=== PATIENT | female | born 1945 | race Asian ===

== ENCOUNTER → 2017-02-03 | Outpatient (CLI) | payer OTHER | LOC: FIMAGING 10:45 | DX: Z12.31 Encounter for screening mammogram for malignant neoplasm of breast (principal) | CPT/HCPCS: G0202 ==

== ENCOUNTER → 2017-12-13 | Outpatient (CLI) | payer OTHER | LOC: FIMAGING 10:34 | PROVIDERS: ATTEND Physician Assistant | DX: M48.061 Spinal stenosis, lumbar region without neurogenic claudication (principal); M46.96 Unspecified inflammatory spondylopathy, lumbar region; M48.07 Spinal stenosis, lumbosacral region; M46.97 Unspecified inflammatory spondylopathy, lumbosacral region ==

== ENCOUNTER 2018-02-20 11:19 | Emergency (ER) | payer OTHER ==
--- NOTE | 2018-02-20 12:18 | EDPHY ---
H & P Stated Complaint: HTN for a couple of weeks - Personal History Current Tetanus/Diphtheria Vaccine: Yes Current Tetanus Diphtheria and Acellular Pertussis (TDAP): Yes Tetanus Vaccine Date: < 10 years - Medical/Surgical History Hx Asthma: No Hx Chronic Respiratory Disease: No Hx Diabetes: No Hx Cardiac Disease: Yes Hx Renal Disease: No Hx Cirrhosis: No Hx Alcoholism: No Hx HIV/AIDS: No Hx Splenectomy or Spleen Trauma: No Other PMH: Cerebral aneurysm, hypertension, hypothyroidism, CVA, ITP, SHANNAN - Social History Smoking Status: Never smoked Time Seen by Provider: 02/20/18 12:05 HPI/ROS: CHIEF COMPLAINT: Redness to right eye, hypertension HISTORY OF PRESENT ILLNESS: 72-year-old female with medical history significant for cardoza aneurysm in 2012 with clipping, history of hypertension. She presents to the ER with her via private vehicle stating that for the past several weeks she has been feeling "off". She has difficulty describing this in detail. She notes that for the past several weeks her blood pressure systolic has been running in the 140s to 150s which was of concern to the patient and her given her medical history of aneurysm and the difficulty in controlling her hypertension for the past several years for which he has been followed by her PCP, Cardiology, Nephrology. No recent change to her medications. 3 days ago the patient had left cataract surgery performed. 2 days later she woke and noticed subconjunctival hemorrhage in the right eye. No ocular pain. No trauma to the right eye. No headache. No gait instability. No slurred speech. REVIEW OF SYSTEMS: A ten point review of systems was performed and is negative with the exception of the items mentioned in the HPI PAST MEDICAL & SURGICAL HISTORY: Aneurysm with clipping and coiling. SOCIAL HISTORY: nonsmoker PHYSICAL EXAM (Prior to examination, patient consented to physical exam, hands were washed and my usual and customary physical exam procedures followed) 1) GENERAL: Well-developed, well-nourished, alert and oriented. Appears to be in no acute distress. 2) HEAD: Normocephalic, atraumatic 3) HEENT: Pupils equal, round, reactive to light bilaterally. Sclera anicteric. Right eye subacute subconjunctival hemorrhage at the 6 o'clock position. No hyphema. No proptosis. No pain with extraocular movements. No photophobia. Nasopharynx, oropharynx, clear, no lesions. Ears bilaterally with normal tympanic membranes. 4) NECK: Full range of motion, no meningeal signs. 5) LUNGS: Clear auscultation bilaterally, no wheezes, no rhonchi, no retractions. 6) HEART: Regular rate and rhythm, no murmur, no heave, no gallop. 7) ABDOMEN: No guarding, no rebound, no focal tenderness, negative McBurney's, negative Regalado's, negative Rovsing's, negative peritoneal sign, 8) MUSCULOSKELETAL: Moving all extremities, no focal areas of tenderness, no obvious trauma. No peripheral edema or discoloration. 9) BACK: No CVA tenderness, no midline vertebral tenderness, no fluctuance, no step-off, no obvious trauma, no visual or palpable abnormality. 10) SKIN: No rash, no petechiae. 11) Psychiatric: Patient is oriented X 3, there is no agitation. 12) NEURO: Awake, alert, and oriented to person, place and time. Answers questions appropriately. There were no obvious focal neurologic abnormalities. No cerebellar dysfunction. Cranial nerves 2 through to 12 intact. Normal steady gait. Upper and lower extremities bilaterally with strength 5 / 5, reflexes 2+. DIFFERENTIAL DIAGNOSIS: In no particular order, including but not limited to subarachnoid hemorrhage, migraine headache, CVA (Donna,Rosamaria Arianne) Constitutional: Initial Vital Signs Temperature (C) 36.7 C 02/20/18 11:25 Heart Rate 86 02/20/18 11:25 Respiratory Rate 18 02/20/18 11:25 Blood Pressure 149/80 H 02/20/18 11:25 O2 Sat (%) 94 02/20/18 11:25 O2 Delivery Mode Room Air Allergies/Adverse Reactions: peanut Allergy (Intermediate, Verified 02/20/18 11:22) Hives Penicillins Allergy (Verified 02/20/18 11:22) Home Medications: Medication Instructions Recorded Avapro 02/20/18 Diltiazem 02/20/18 Fosamax 5mg 02/20/18 HCTZ (*) 02/20/18 Plavix 02/20/18 Pletal (*) 02/20/18 Synthroid 02/20/18 Medical Decision Making - Diagnostics Imaging Results: Images reviewed by myself (Rosamaria Thompson) ED Course/Re-evaluation: 12:25 p.m.: Care of patient under supervision of secondary supervising physician Dr Jameson with whom I discussed case. Old medical records reviewed. This patient has a nonfocal neurologic examination. She is stating that she has been feeling off for the past couple weeks. Given her history of multiple aneurysm, hypertension, will plan on obtaining CT imaging with and without contrast. Doubt CVA. Doubt TIA. Regarding her right eye erythema, this is consistent with a resolving subconjunctival hemorrhage. Doubt acute closed angle glaucoma. Regarding her current blood pressure in the 140s. This will not be emergently decreased.. 3:39 p.m.: Discussed the imaging results with radiologist. A nonspecific punctate enhancement at the lateral wall of the left cavernous carotid artery was noted by the radiologist and we specifically discussed this. It was felt by the radiologist that this does not represent carotid dissection. I re- evaluated the patient most recently at this time. I Discussed the imaging results with the patient. She remains with a nonfocal exam. She is smiling. She has no complaints of headache, chest pain, dizziness, slurred speech. Plan will be discharge with usual customary discharge precautions instructions. Regarding her hypertension I recommended maintaining a blood pressure diary and discussing this with her primary care provider. She and feel comfortable being discharged all questions and concerns addressed by myself. ( Rosamaria Thompson) I did not see this patient while she was in the emergency department. However her care was discussed with the PA while the patient was in the department. I agree with treatment plan and management (Pablo Jameson) - Data Points Laboratory Results: Laboratory Results 02/20/18 12:32 02/20/18 12:32 Departure - Departure Disposition: Home, Routine, Self-Care Clinical Impression: Hypertension Condition: Good Instructions: Hypertension (ED) Additional Instructions: RETURN TO THE ED IMMEDIATELY IF you develop headache IF YOU DEVELOP A FEVER, NECK PAIN OR NECK STIFFNESS, OR IF YOU BECOME CONFUSED OR ABNORMALLY DROWSY. Referrals: Simran Jacob MD [Primary Care Provider] - 1-2 days without fail NIH Stroke Scale Date of Exam: 02/20/18 Time of Exam: 12:20 Level of Consciousness: Alert LOC Questions: Answers Both LOC Commands: Performs Both Correctly Best Gaze: Normal Visual: No Visual Loss Facial Palsy: Normal Motor Arm-Left: No Drift Motor Arm-Right: No Drift Motor Leg-Left: No Drift Motor Leg-Right: No Drift Limb Ataxis: Absent Sensory: Normal Best Language: No Aphasia Dysarthria: Normal Extinction and Inattention (Neglect): No Abnormality NIH Scale Score: 0
[2018-02-20 12:42] LABS: PLATELET COUNT 268 10^3/uL (150-400)
[2018-02-20] MEDS ORDERED: IOPAMIDOL (ISOVUE 370) 100 ML BTL IV ONE (12:54)
[2018-02-20 15:44] VITALS: BP 140/79
== END 2018-02-20 15:45 | disposition home or self-care (01) ==
DX: I10 Essential (primary) hypertension (principal); Z86.73 Personal history of transient ischemic attack (TIA), and cerebral infarction without residual deficits
CPT/HCPCS: 70450; 70496; 99285; Q9967; 82947-QW

== ENCOUNTER → 2018-04-04 | Outpatient (CLI) | payer OTHER | LOC: FIMAGING 12:58 | PROVIDERS: ATTEND Family Medicine | DX: Z12.31 Encounter for screening mammogram for malignant neoplasm of breast (principal) ==

== ENCOUNTER 2018-11-21 07:52 | Inpatient (IN) | payer OTHER ==
--- NOTE | 2018-11-06 15:02 | GHP ---
DATE OF ADMISSION: 11/21/2018 DATE OF SURGERY: She will be an a.m. admission for surgery at [facility] on November 21, 2018. PROBLEM: Left knee arthritis. HISTORY OF PRESENT ILLNESS: The patient is a 73-year-old woman admitted for a left total knee arthro plasty. She has had progressive pain in her left knee for the past couple of years. She has tried G elsyn injections and Supartz injections with minimal long-term benefit. The knee is painful for walk ing. Her activities are very limited. She has failed nonsurgical treatment. She will undergo a lef t total knee arthroplasty. PAST MEDICAL HISTORY: She is treated for hypertension and hypothyroidism. She had a brain aneurysm treated in 2012. She has sleep apnea and uses a CPAP machine. No history of heart disease, stents, DVT, hepatitis, MRSA staph infections, or hereditary bleeding disorders. CURRENT MEDICATIONS: Diltiazem 120 mg extended release in the morning and 240 mg extended release in the p.m. Hydrochlorothiazide 25 mg per day. Avapro 150 mg per day. Alendronate 70 mg per week. L evothyroxine 50 mcg per day. DRUG ALLERGIES: She has a remote poorly defined penicillin allergy as a young child. Metal allergy: None. Latex allergy: None. SOCIAL HISTORY: The patient is . She does not smoke cigarettes or drink alcohol. FAMILY HISTORY: Noncontributory. PHYSICAL EXAMINATION: VITAL SIGNS: Height 5 feet, weight 120 pounds. BMI 23.4. EYES: Bilateral c ataract surgery with lens implants. Bilateral arcus senilis. MOUTH: Good oral hygiene. No loose t eeth. CHEST: Clear. HEART: Regular rhythm. No murmurs. EXTREMITIES: Pertinent findings are limi lyle to her left knee. She has a moderate effusion. She lacks 7 or 8 degrees of full extension and f lexes to 100 degrees. She has pseudolaxity of her medial collateral ligament. She is very tender al robbin the medial joint line. IMAGING: Her films show advanced medial compartment degenerative arthritis. She is bone on bone. V arus alignment. She has mild medial compartment degenerative arthritis in the left knee. IMPRESSION ON ADMISSION: 1. Left knee medial compartment degenerative arthritis. She is prepared for a left total knee arthr oplasty. 2. Treatment for hypertension. 3. Treatment for hypothyroidism. 4. Treatment for sleep apnea. 5. History of brain aneurysm in 2012. PLAN: She will undergo a left total knee arthroplasty. The surgery has been described to her, inclu ding the risks, complications, expectations, and recovery time. I stressed the importance of postope rative physical therapy. I have explained to her that there is a small risk of failure of the total knee replacement. A small percentage of people have persistent pain. All her questions have been an swered, and she consents to surgery. /[id number]/MODL
[~2018-11-21 07:52] MED LIST: POVIDONE-IODINE 20 ML in SODIUM CL IRRIG SOLUTION 500 ML IRR ONE; TRANEXAMIC ACID 3,000 MG/50 ML BAG IRR ONE; VANCOMYCIN 1 GM VIAL ONE; ceFAZolin 1 GM/5 ML SYR ONE
[2018-11-21] MEDS ORDERED: FAMOTIDINE 20 MG TAB PO ONE (08:06)
[2018-11-21] MEDS ORDERED: ceFAZolin 2 GM/DEXTROSE 100 ML IV ONE (08:06)
[2018-11-21] MEDS ORDERED: DEXAMETHASONE 4 MG/ML VIAL IVP ONE (08:06)
[2018-11-21] MEDS ORDERED: GABAPENTIN 300 MG CAP PO ONE (08:06)
[2018-11-21] MEDS ORDERED: ACETAMINOPHEN 325 MG TAB PO ONE (08:06)
[2018-11-21] MEDS ORDERED: ONDANSETRON 4 MG/2 ML VIAL IVP ONE (08:06)
[2018-11-21] MEDS ORDERED: LR 1,000 ML IV ONE (08:10)
[2018-11-21] MEDS ORDERED: TRANEXAMIC ACID 1,000 MG in NS 100 ML IV ONE (09:00)
[2018-11-21] MEDS ORDERED: TRANEXAMIC ACID 3,000 MG in NS (SYRINGE) 50 ML IRR ONE (09:00)
[2018-11-21] MEDS ORDERED: ROPIVACAINE 0.2% 80 MG, EPINEPHrine 0.2 MG, KETOROLAC TROMETHAMINE 30 MG in SYRINGE 0 ML IU ONE (09:00)
--- NOTE | 2018-11-21 09:48 | PDHPUP ---
History & Physical Update H&P update statement: This history and physical update is based on an assessment of the patient which was completed after admission or registration (within 24 hours), but prior to the surgery/procedure. H&P update: H&P reviewed & patient examined
[2018-11-21] MEDS ORDERED: MIDAZOLAM 2 MG/2 ML VIAL ONE (10:26)
[2018-11-21] MEDS ORDERED: MIDAZOLAM 2 MG/2 ML VIAL IVP ONE (10:30)
--- NOTE | 2018-11-21 10:31 | PDANEPAE ---
ANE Past Medical History - Cardiovascular History Hx Hypertension: Yes Hx Arrhythmias: No Hx Chest Pain: No Hx Coronary Artery / Peripheral Vascular Disease: No Hx CHF / Valvular Disease: No Hx Palpitations: No - Pulmonary History Hx COPD: No Hx Asthma/Reactive Airway Disease: No Hx Recent Upper Respiratory Infection: No Hx Oxygen in Use at Home: No Hx Sleep Apnea: Yes Sleep Apnea Screening Result - Last Documented: Negative Pulmonary History Comment: SHANNAN USES C-PAP INSTRUCTED TO BRING DOS - Neurologic History Hx Cerebrovascular Accident: Yes Hx Seizures: No Hx Dementia: No Neurologic History Comment: POST CEREBRAL ANEURSYM CLIP - Endocrine History Hx Diabetes: No Endocrine History Comment: HYPOTHYROID - Renal History Hx Renal Disorders: Yes Renal History Comment: DIFFICULTY EMPTYING BLADDER - Liver History Hx Hepatic Disorders: No - Neurological & Psychiatric Hx Hx Neurological and Psychiatric Disorders: No - Cancer History Hx Cancer: No - Congenital Disorder History Hx Congenital Disorders: No - GI History Hx Gastrointestinal Disorders: No - Other Health History Other Health History: INTERMITTENT NECK PAIN. NUMBNESS RT LEG. MISSING TEETH - Chronic Pain History Chronic Pain: Yes (LT KNEE) - Surgical History Prior Surgeries: FANNY CATARACTS. CRANIOTOMY FOR CEREBRAL ANEURSYM 2013 POST SURG CVA ANE Review of Systems Review of Systems: - Exercise capacity METS (RN): 4 METS ANE Patient History - Allergies Allergies/Adverse Reactions: Penicillins Allergy (Verified 11/08/18 10:57) - Home Medications Home Medications: Alendronate Sodium [Fosamax 70 MG (*)] 70 mg PO STEIN@0700 11/08/18 [Last Taken ] Aspirin [Aspirin 81mg (*)] 81 mg PO DAILY@1200 11/08/18 [Last Taken 1 Week Ago ~ 11/14/18] Cholecalciferol Vit D3 [Vitamin D3 (*)] 1,000 units PO TID 11/08/18 [Last Taken 1 Week Ago ~11/14/18] Diltiazem HCl [Diltiazem 24Hr Cd] 120 mg PO DAILY 11/08/18 [Last Taken 11/21/18 06:30] Diltiazem HCl [Diltiazem 24Hr Cd] 240 mg PO HS 11/08/18 [Last Taken 11/20/18] Fluticasone Nasal [Flonase Nasal [place] (RX)] 2 sprays NASAL DAILY PRN 11/08/18 [ Last Taken 1 Week Ago ~11/14/18] Herbals/Supplements -Info Only 1 ea PO DAILY 11/08/18 [Last Taken 1 Week Ago ~] Hydrochlorothiazide [Hydrochlorothiazide] 25 mg PO DAILY 11/08/18 [Last Taken ] Irbesartan [Avapro 150 mg (*)] 150 mg PO BID 11/08/18 [Last Taken 11/20/18] Levothyroxine [Synthroid 50 mcg (*)] 50 mcg PO SUTUTHSA@06 11/08/18 [Last Taken 11/21/18 06:30] Levothyroxine [Synthroid 50 mcg (*)] 75 mcg PO MWF@0600 11/08/18 [Last Taken ] Multivitamins [Multivitamin (*)] 0.5 each PO BID 11/08/18 [Last Taken 1 Week Ago ~11/14/18] Tears/Dextran 70/Hypromellose [Natural Balance Tears (*)] 1 drop EACHEYE Q2 PRN 11/08/18 [Last Taken 11/21/18 06:30] - NPO status NPO Since - Liquids (Date): 11/21/18 NPO Since - Liquids (Time): 06:30 NPO Since - Solids (Date): 11/21/18 NPO Since - Solids (Time): 00:00 - Smoking Hx Smoking Status: Never smoked ANE Labs/Vital Signs - Vital Signs Blood Pressure: 158/69 Heart Rate: 64 Respiratory Rate: 19 O2 Sat (%): 97 Height: 152.4 cm Weight: 54.431 kg ANE Physical Exam - Airway Neck exam: decreased ROM Mallampati Score: Class 1 Mouth exam: normal dental/mouth exam - Pulmonary Pulmonary: no respiratory distress - Cardiovascular Cardiovascular: regular rate and rhythym - ASA Status ASA Status: II ANE Anesthesia Plan Anesthesia Plan: spinal Regional Anesthesia: adductor canal FNB
[2018-11-21] MEDS ORDERED: BUPIVACAINE/DEXTROSE 7.5MG/ML 2 ML SPINAL AMP SP ONE (10:37)
[2018-11-21] MEDS ORDERED: PROPOFOL/EMULSION 500 MG/50 ML BOTTLE IV ONE (10:52)
[2018-11-21] MEDS ORDERED: LIDOCAINE 2% 5 ML SDV ONE (10:52)
[2018-11-21] MEDS ORDERED: fentaNYL 100 MCG/2 ML INJ IVP PRN (12:32)
[2018-11-21] MEDS ORDERED: LR 500 ML IV PRN (12:32)
[2018-11-21] MEDS ORDERED: ONDANSETRON 4 MG/2 ML VIAL IVP PRN ×2 (12:32→12:39)
[2018-11-21] MEDS ORDERED: NALOXONE HCL 0.4 MG/ML INJ IVP PRN (12:32)
[2018-11-21] MEDS ORDERED: TEARS/DEXTRAN 70/HYPROMELLOSE 15 ML OPHT.BTL EACHEYE PRN (12:38)
[2018-11-21] MEDS ORDERED: FLUTICASONE NASAL 120 SPRAYS/16 GM MDI EACHNARE PRN (12:38)
[2018-11-21] MEDS ORDERED: ONDANSETRON DISINTEGRATING 4 MG TAB PO PRN (12:39)
[2018-11-21] MEDS ORDERED: BISACODYL 10 MG SUPP PR PRN (12:39)
[2018-11-21] MEDS ORDERED: traMADol 50 MG TAB PO PRN (12:39)
[2018-11-21] MEDS ORDERED: LACTULOSE 20 GM/30 ML UDCUP PO PRN (12:39)
[2018-11-21] MEDS ORDERED: TEMAZEPAM 15 MG CAP PO PRN (12:39)
[2018-11-21] MEDS ORDERED: POLYETHYLENE GLYCOL 3350 17 GM PKT PO PRN (12:39)
[2018-11-21] MEDS ORDERED: NS 500 ML IV PRN (12:39)
[2018-11-21] MEDS ORDERED: CYCLOBENZAPRINE 10 MG TAB PO PRN (12:39)
[2018-11-21] MEDS ORDERED: oxyCODONE IR 5 MG TAB PO PRN (12:39)
[2018-11-21] MEDS ORDERED: MAGNESIUM HYDROXIDE 30 ML UDCUP PO PRN (12:39)
[2018-11-21] MEDS ORDERED: PROMETHAZINE HCL 25 MG SUPPR PR PRN (12:39)
[2018-11-21] MEDS ORDERED: PROMETHAZINE HCL 25 MG/ML INJ IVP PRN (12:39)
[2018-11-21] MEDS ORDERED: diphenhydrAMINE 25 MG CAP PO PRN (12:39)
[2018-11-21] MEDS ORDERED: DIPHENOXYLATE/ATROPINE LOMOTIL 1 TAB PO PRN (12:39)
[2018-11-21] MEDS ORDERED: METOCLOPRAMIDE 10 MG/2 ML VIAL IVP PRN (12:39)
[2018-11-21] MEDS ORDERED: LR 1,000 ML IV SCH (13:00)
--- NOTE | 2018-11-21 13:36 | GOP ---
DATE OF OPERATION: 11/21/2018 SURGEON: Kain Palmer MD SENIOR ARCHITECT: KIMMIE Harvey. Justyn Foster CRM TECHNICAL LEAD. ANESTHESIA: Combination of Marcaine, spinal, IV sedation, and adductor canal block. ANESTHESIOLOGIST: Miles Cano MD. PREOPERATIVE DIAGNOSIS: Left knee degenerative arthritis, primarily involving the medial compartment . POSTOPERATIVE DIAGNOSIS: Left knee degenerative arthritis, primarily involving the medial compartmen t. PROCEDURE PERFORMED: A left total knee arthroplasty, cemented, Richmond and Nephew Journey II, posterio r stabilized. FINDINGS: DESCRIPTION OF PROCEDURE: The patient was given 2 g of IV Ancef preoperatively within 60 minutes of surgery. She also received 1000 mg of IV tranexamic acid. She was placed on the operating room tabl e and given spinal anesthesia with Marcaine by Dr. Cano. She was then placed supine and given IV sedation. A Grace catheter was not used. She wore a VERONIKA stocking and SCD on the nonoperative leg. Her left lower extremity was prepped with ChloraPrep from the upper thigh tourniquet to the tips of the toes. It was draped free using sterile sheets, stockinette, and Ioban plastic adhesive drape. T he lower leg was wrapped with compressive Coban. The leg was exsanguinated with elevation and a 6-in ch compressive wrap, and the tourniquet was inflated to 250 mmHg. The World Health Organization time-out was performed to verify the correct patient identity and the c orrect surgical side and site. The [place] time-out was also performed. The Ener-G-Rotorsayo leg holding device was sterilely attached to the operating room table and used throughout the procedure to help position the knee. A straight midline incision was made centered on the patell a. Subcutaneous tissues were sharply divided, and hemostasis was obtained using electrocautery. A m edial subcutaneous flap was developed, and the capsule and synovium were opened in a medial parapatel lar fashion. Extensive degenerative changes were present, particularly in the medial compartment. H er medial capsule and periosteum were elevated off the rim of the medial tibial plateau all the way a round to the posteromedial corner. Her medial collateral ligament was released enough to balance the medial side of the knee. In order to improve exposure, her patella was prepared first. The original thickness of the patella was measured. Peripheral osteophytes were removed. I cut a flat surface on the back of the patella. It was sized for a 35 mm round resurfacing component. I removed enough bone from the patella such that the remaining bone plus the thickness of the patellar component recreated the original thickness of the patella. The composite thickness was 23 mm. The intramedullary alignment guide system was used to set up the distal femoral cut. The distal femu r was cut in 6 degrees of valgus. The sizing jig was used to determine proper femoral sizing. I jin fted the jig anteriorly 1 mm in order to accommodate the size 3 jig without notching the cortex. The 5-in-1 cutting block was applied, and the anterior and posterior condylar cuts and chamfer cuts were made. The final jig was used to remove the central portion of the distal femur to accommodate the p osterior stabilized femoral component. I was careful to determine proper rotation by referencing off Briscoe line and other bony landmarks. Each cut was checked for accuracy. The femur was sized fo r a size 3 posterior stabilized component. Next, the tibia was prepared. The proximal tibial cut was made using the extramedullary alignment gu supriya system. The cut was made in a few degrees of posterior slope. I was careful to achieve proper v arus valgus alignment and proper rotation. The posterior compartment was cleared of meniscal remnant s. Osteophytes were removed from the back of her femoral condyles. I checked the flexion and extens ion gaps. The medial side was still a little bit tight. I did some additional release on the medial collateral ligament. At that point, the flexion and extension gaps were equal and rectangular. The tibia was sized for a size 3 component. With the trial components in place, I selected a 12 mm polye thylene posterior stabilized tibial insert. The knee came to full extension and flexed to 125 degree s. The collateral ligaments were stable and balanced in 90 degrees of flexion and full extension. T he trial patellar button was applied, and tracking was checked. Tracking was excellent without any d igital pressure. 40 cc of the joint anesthetic cocktail was injected into the posterior capsule, the quadriceps muscle and tendon areas, and the subcutaneous tissues along the skin edges. The surfaces were prepared for cementing. They were carefully cleaned with the pulsating lavage irri gation and thoroughly dried. The CarboJet device was used to blow dry the cancellous surfaces. A do uble batch of high viscosity methylmethacrylate cement with 2 g of powdered vancomycin added was mixe d. While it was still in a doughy state, all [address] components were cemented in place. Excess cement was removed before it hardened. The 12 mm trial tibial insert was re-tried and was the proper thickness. The actual component was in serted and locked into place. The knee was thoroughly irrigated 1 final time with a dilute Betadine solution. The tourniquet was deflated. The total tourniquet time was 53 minutes. 50 mL of tranexamic acid tracie ution was irrigated into the wound and left in place for a few minutes. The vastus medialis portion of the extensor mechanism was repaired with several interrupted figure-of -eight #2 FiberWire sutures. The capsule and synovium were closed first with multiple interrupted fi [id number] PDS sutures, followed by a running #2 barbed Ethicon Stratafix PDO suture. Subcutane ous tissues were closed with a running 0 barbed Ethicon Stratafix Monoderm suture. The skin was clos ed with a running 3-0 barbed Ethicon Stratafix Monoderm subcuticular suture. The skin was sealed wit h half-inch Steri-Strips. The wound was covered with a large Mepilex waterproof dressing, and the kn ee was wrapped with a Kerlix and a 6-inch compressive wrap. A long-leg VERONIKA stocking and SCD were su lied, followed by the cooling device. The sacral Mepilex dressing was also applied. I used a size 3 cemented Richmond and Nephew Oxinium posterior stabilized femoral component, a size 3 ce mented tibial base plate, a 12 mm posterior stabilized tibial insert, and a 35 mm cemented round all- polyethylene resurfacing patellar component. The estimated blood loss following deflation of the tourniquet was about 100 cc. The sponge and needle count were correct on 2 occasions. The patient was awakened from anesthesia, transferred to her [facility], and taken to PACU in sa tisfactory condition. There were no recognized intraoperative complications. In the PACU, for addit ional postoperative pain control, Dr. Cano performed an adductor canal block with an indwelling catheter. Nima Meyers and Justyn Foster acted as surgical assistants. Their assistance was a medical necess ity for safe completion of the procedure. Copy requested to: KIMMIE [facility] Justyn Foster CFA [facility] /[id number]/MODL
[2018-11-21] MEDS ORDERED: DEXAMETHASONE 4 MG/ML VIAL ONE (13:39)
[2018-11-21] MEDS: KETOROLAC 15 MG/1 ML SDV IVP SCH (17:35)
[2018-11-21] MEDS: ceFAZolin 2 GM/DEXTROSE 100 ML IV SCH (17:36)
[2018-11-21] MEDS: ACETAMINOPHEN 325 MG TAB PO SCH (17:36)
[2018-11-21] MEDS: FAMOTIDINE 20 MG TAB PO SCH (20:48)
[2018-11-21] MEDS: SENNOSIDES/DOCUSATE SODIUM TAB PO SCH (20:48)
[2018-11-21] MEDS: IRBESARTAN 150 MG TAB PO SCH (20:48)
[2018-11-21] MEDS ORDERED: DILTIAZEM CD 120 MG CAP PO SCH (21:00)
--- NOTE | 2018-11-21 21:41 | PDMN ---
Medical Necessity Medical necessity: Pt meets IP criteria as of 11/21/2018 per MD and MCG S-700 ( TKA); est los > 2 mn s/p TKA; comorbid advanced age, HTN, SHANNAN, hypothyroid and brain aneurysm.
[2018-11-21] MEDS: ASPIRIN 325 MG TAB PO SCH (21:53)
[2018-11-22] MEDS: KETOROLAC 15 MG/1 ML SDV IVP SCH ×3 (00:47→13:04)
[2018-11-22] MEDS: ACETAMINOPHEN 325 MG TAB PO SCH ×3 (00:54→13:03)
[2018-11-22] MEDS: ceFAZolin 2 GM/DEXTROSE 100 ML IV SCH (01:47)
[2018-11-22] MEDS ORDERED: LEVOTHYROXINE 50 MCG TAB PO SCH (06:00)
[2018-11-22] MEDS ORDERED: FERROUS SULFATE 325 MG TAB PO SCH (08:00)
[2018-11-22] MEDS: ASPIRIN 325 MG TAB PO SCH (08:37)
[2018-11-22] MEDS: FAMOTIDINE 20 MG TAB PO SCH (08:37)
[2018-11-22] MEDS: IRBESARTAN 150 MG TAB PO SCH (08:40)
[2018-11-22] MEDS: SENNOSIDES/DOCUSATE SODIUM TAB PO SCH (08:42)
[2018-11-22 08:45] VITALS: BP 155/68
[2018-11-22] MEDS ORDERED: HYDROCHLOROTHIAZIDE 25 MG TAB PO SCH (09:00)
[2018-11-22] MEDS ORDERED: DILTIAZEM CD 120 MG CAP PO SCH (09:00)
[2018-11-22] MEDS ORDERED: ROPIVACAINE HCL 150 MG/30 ML INJ ONE (09:25)
[2018-11-22] MEDS ORDERED: LIPID EMULSION 20% 100 ML IV PRN (09:27)
--- NOTE | 2018-11-22 09:40 | SOAPPROG ---
SOAP Progress Note Assessment/Plan: Assessment: Afebrile. Awake and alert. Mild pain. She had some postural hypotension yesterday afternoon. H&H are good. Postop films look excellent. Plan: Continue physical therapy today for walking and stairs. Discharge later today. 11/22/18 09:40 Objective: Vital Signs Temp Pulse Resp BP Pulse Ox 36.6 C 69 17 155/68 H 98 11/22/18 07:52 11/22/18 08:41 11/22/18 07:52 11/22/18 08:41 11/22/18 07:52 Laboratory Results 11/22/18 04:30 11/21/18 11/22/18 11/23/18 05:59 05:59 05:59 Intake Total 1795 Output Total 1900 800 Balance -105 -800 ICD10 Worksheet Patient Problems: Problems Problem Status Onset Osteoarthritis of left knee Acute Torrez aneurysm Active CAD - Coronary arteriosclerosis Active Orthostatic hypotension Active Syncope Active
--- NOTE | 2018-11-22 11:12 | PDPAINCON ---
Pain Management Consultation Patient referred by : Estela - Subjective Pain at rest (/10): 2 Pain with activity (/10): 4 Pain is: low, well controlled Activity: able to ambulate, out of bed with assistance - Objective Technique: continuous peripheral nerve block Site: femoral Continuous infusion: ropivicaine Catheter site: clean, dry, intact, no erythema/edema/exudate Sensory and motor exam: consistent with block Vital signs: stable - Assessment/Plan Assessment/Plan: pain well-controlled, continue current mgmt (Pt doing well. Minimal pain s/p L TKA. AC catheter bolused with 30 ml 0.5% Ropivacaine and removed.)
--- NOTE | 2018-11-22 11:16 | GDS ---
ADMISSION DIAGNOSIS: Left knee severe degenerative arthritis. DISCHARGE DIAGNOSIS: Left knee severe degenerative arthritis. OPERATION PERFORMED: November 21, 2018, a left total knee arthroplasty. POSTOPERATIVE COMPLICATIONS: None. CONDITION ON DISCHARGE: Improved. DESCRIPTION OF HOSPITAL COURSE: The patient was admitted to the hospital on the morning of surgery. Her admission CBC was normal. Sodium 135, potassium 3.6, BUN and creatinine 15 and 0.7. The same d ay, under a combination of Marcaine spinal, IV sedation, and adductor canal block, she underwent a le ft total knee arthroplasty. Postoperatively, she was treated with multimodal DVT prophylaxis, includ ing aspirin. She was seen by Physical Therapy and made excellent progress with ambulation and stairs . By the time of discharge, she was afebrile and was independent walking with a walker. DISPOSITION: The patient is discharged to her home. She will go to outpatient physical therapy next week. She may progress to full weightbearing on the left as tolerated. Use VERONIKA stockings for 1 wee k. Continue aspirin 325 mg p.o. daily for 21 days. She has prescriptions for Celebrex, tramadol, an d oxycodone for pain control. I will see her back in the office on December 07, 2018. If there are a ny problems, she is to call me at the office. /[id number]/MODL
--- NOTE | 2018-11-22 12:23 | ASMTCMCOM ---
CM Note CM Note Notes: Pt had planned OA of knee, PT and MD rec outpatient PT. No CM d/c needs identified. Date Signed: 11/22/2018 12:22 PM Electronically Signed By:WILLIAN Whyte
[2018-11-23] MEDS ORDERED: LEVOTHYROXINE 50 MCG TAB PO SCH (06:00)
--- NOTE | 2018-11-23 17:13 | SOAPPROG ---
SOAP Progress Note Assessment/Plan: Assessment: Afebrile. Awake and alert. Mild pain. She had some postural hypotension yesterday afternoon. H&H are good. Postop films look excellent. Plan: Continue physical therapy today for walking and stairs. Discharge later today. 11/22/18 09:40 11/23/18 17:11 Pt did better than expected and was able to be discharged after one night stay in the hospital Objective: Vital Signs Temp Pulse Resp BP Pulse Ox 36.6 C 75 14 155/68 H 97 11/22/18 07:52 11/22/18 10:42 11/22/18 10:42 11/22/18 08:41 11/22/18 10:42 Laboratory Results 11/22/18 04:30 11/22/18 11/23/18 11/24/18 05:59 05:59 05:59 Intake Total 1795 Output Total 1900 800 Balance -105 -800 ICD10 Worksheet Patient Problems: Problems Problem Status Onset Torrez aneurysm Active CAD - Coronary arteriosclerosis Active Orthostatic hypotension Active Syncope Active Osteoarthritis of left knee Acute
--- NOTE | 2018-11-27 14:47 | GPROG ---
The patient's cardiovascular status is normal, stable. The patient's respiratory status is normal, stable. The patient's pain control is adequate with p.r.n. frequent ordered. Nausea/vomiting control are adequate with p.r.n. treatment ordered. Mental status is mildly sleepy, easily arousable. Complications related to anesthesia are none at this time. /[id number]/MODL
== END 2018-11-22 14:00 | disposition home or self-care (01) | DRG 470 ==
LOC: F3N 07:52
PROVIDERS: ADMIT Orthopaedic Surgery; ATTEND Orthopaedic Surgery
PROC: 0SRD0J9 Replacement of Left Knee Joint with Synthetic Substitute, Cemented, Open Approach (ICD-10-PCS; principal; 2018-11-21 09:00)
DX: M17.12 Unilateral primary osteoarthritis, left knee (principal); I10 Essential (primary) hypertension; E03.9 Hypothyroidism, unspecified; G47.33 Obstructive sleep apnea (adult) (pediatric)
CPT/HCPCS: 97110-GP; 97116-GP; 97161-GP; 97165-GO; 97530-GP; 97535-GO; C1713; J0171; J0690; J1100; J1885; J2250; J2405; J2704; J2795; J3370

== ENCOUNTER → 2019-02-07 | Outpatient (CLI) | payer OTHER ==
[~2019-02-07] MED LIST changes: +IOPAMIDOL (ISOVUE 370) 100 ML BTL IV ONE; -POVIDONE-IODINE 20 ML in SODIUM CL IRRIG SOLUTION 500 ML IRR ONE; -TRANEXAMIC ACID 3,000 MG/50 ML BAG IRR ONE; -VANCOMYCIN 1 GM VIAL ONE; -ceFAZolin 1 GM/5 ML SYR ONE
== END ==
LOC: FIMAGING 12:48
DX: Z86.79 Personal history of other diseases of the circulatory system (principal); Z95.828 Presence of other vascular implants and grafts
CPT/HCPCS: 70450; 70496; Q9967; 82565-PO